=== PATIENT | female | born 1980 | race Caucasian/White ===

== ENCOUNTER → 2020-09-09 09:01 | Outpatient (CLI) | payer OTHER, SELFPAY ==
--- NOTE | 2020-09-09 09:05 | DI.RAD.S_ITS ---
PROCEDURE: XR HAND RT MIN 3V INDICATIONS: intermittent hand pain and swelling TECHNIQUE: 3 views of the hand(s) acquired. COMPARISON: None. FINDINGS: Bones: No evidence of acute fracture. No marginal lucencies to suggest erosions identified. There is chondrocalcinosis projecting of the radiocarpal compartment. Radiocarpal joint degeneration is also noted. 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 Soft tissue swelling primarily involving the index and middle fingers. IMPRESSION: Chondrocalcinosis in the radiocarpal compartment. Radiocarpal and distal radioulnar joint osteoarthritis No definite marginal lucencies to suggest erosions. Dictated by: Dwight Ibarra M.D. on 09/09/2020 at 11:31 Approved by: Dwight Ibarra M.D. on 09/09/2020 at 11:33
[2020-09-09 09:39] LABS: Hematocrit 38.1 % (36-46); Hemoglobin 13.1 g/dL (12.0-16.0); Mean Corpuscular HGB Conc 34.3 % (30-36); Mean Corpuscular Hemoglobin 33.1 PG (26-34); Mean Corpuscular Volume 96.5 fL (80-100); Platelet Count 197 X10^3/uL (150-400); Red Blood Cell Count 3.95 X10^6/uL (4.0-5.2); Red Cell Distribution Width 13.1 % (11.6-14.8)
[2020-09-09 09:56] LABS: Alanine Aminotransferase 12 IU/L (<35); Albumin Globulin Ratio 1.4 (1.0-2.8); Alkaline Phosphatase 56 U/L (38-126); Aspartate Aminotransferase 18 IU/L (14-36); Bilirubin Total 0.3 mg/dL (0.2-1.3); Blood Urea Nitrogen 13 mg/dL (7-17); C-Reactive Protein Quant 0.5 mg/dL (<1.0); Calcium 9.7 mg/dL (8.4-10.2); Carbon Dioxide 29 mmol/L (22-32); Chloride 104 mmol/L (98-107); Cholesterol 146 mg/dL (140-199); Estimated Glomerular Filt Rate > 60.0 mL/min (>60); Globulin 2.9 g/dL (1.7-4.1); Glucose 87 mg/dL (70-100); HDL Cholesterol 57 mg/dL (40-60); HEMOLYSIS < 15 (0-50); LDL Cholesterol Calculated 75 mg/dL (<100); Sodium 137 mmol/L (137-145); Total Protein 6.9 g/dL (6.3-8.2); Triglycerides 68 mg/dL (35-150)
[2020-09-09 09:57] LABS: Potassium 4.5 mmol/L (3.4-5.1)
[2020-09-09 10:01] LABS: Erythrocyte Sedimentation Rate 6 MM/HR (0-20)
[2020-09-11 17:27] LABS: ANA Screen, IFA Positive (.)
== END ==
PROVIDERS: PCP Nurse Practitioner Family; Referring Provider Nurse Practitioner Family; Visit Provider Nurse Practitioner Family
DX: M79.641 Pain in right hand (principal); L40.9 Psoriasis, unspecified; Z00.00 Encounter for general adult medical examination without abnormal findings; Z13.6 Encounter for screening for cardiovascular disorders
CPT/HCPCS: 36415; 73130; 80053; 80061; 85027; 85651; 86038; 86140

== ENCOUNTER → 2020-11-17 12:23 | Outpatient (CLI) | payer OTHER, SELFPAY ==
[2020-11-17 14:46] LABS: HEMOLYSIS < 15 (0-50); Iron 113 ug/dL (37-170)
[2020-11-17 14:59] LABS: Percent Iron Saturation 31 % (15-50); Total Iron Binding Capacity 363 ug/dL (265-497); Transferrin 270 mg/dL (206-381)
[2020-11-17 15:18] LABS: TSH w/ Reflex to FT4 1.35 uIU/mL (0.47-4.68)
[2020-11-17 15:28] LABS: Ferritin 12 ng/mL (6-137)
[2020-11-17 15:41] LABS: Vitamin B12 Reflex MMA if <400 357 pg/mL (239-931)
[2020-11-20 12:14] LABS: Methylmalonic Acid,Serum 198 nmol/L (0-378)
== END ==
PROVIDERS: PCP Nurse Practitioner Family; Referring Provider Nurse Practitioner Family; Visit Provider Nurse Practitioner Family
DX: R53.83 Other fatigue (principal)
CPT/HCPCS: 36415; 82607; 82728; 83540; 83550; 83921; 84443

== ENCOUNTER → 2021-06-30 14:47 | Outpatient (CLI) | payer OTHER, SELFPAY ==
[2021-07-02 17:29] LABS: ANA Screen, IFA Positive (.)
== END ==
PROVIDERS: Family Provider Family Medicine; PCP Family Medicine; Referring Provider Family Medicine; Visit Provider Family Medicine
DX: M25.449 Effusion, unspecified hand (principal)
CPT/HCPCS: 36415; 86038

== ENCOUNTER 2021-07-14 13:45 | Outpatient (RCR) | payer OTHER, SELFPAY ==
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
--- NOTE | 2021-07-04 17:56 | PT.OPPOC ---
Physical, Occupational & Speech Therapy At [facility] Current Diagnoses Other chronic pain (07/04/21) Pain in left shoulder (07/04/21) Pain in right knee (07/04/21) Pain in left knee (07/04/21) Low back pain, unspecified (07/04/21) Pain in right hand (07/04/21) Pain in right foot (07/04/21) Pain in left foot (07/04/21) Visit Care Team Role Provider Type Juvencio Huynh DO Attending Provider Physician Family Provider Primary Care Provider Referring Provider Specialty: Family Practice Address: [address] [place] [address], [facility] Email: Plan Of Care PT-OP-T Assessment and Plan Start: 07/04/21 16:12 Freq: Status: Active Protocol: Document 07/04/21 15:15 DCW (Rec: 07/04/21 17:54 DCW [id number]) Physical Therapy Assessment Rehab Potential Rehabilitation Potential Good Evaluation Complexity Number of Personal Factors/Comorbidities 1-2 Number of Body Systems Impaired 4 or More Clinical Presentation at Evaluation Stable Impairments Impairments Activity Tolerance,Functional Activities,Functional Mobility ,Gait,Soft Tissue Mobility, Strength Goals Three Impairment Pt cannot participate in normal hobbies due to feeling of knee instability Risk Officer Goal (LTG) Pt to demonstrate squatting and jogging with proper knee and hip alignment in order to show ability to perform more advanced activities with improved hip and knee control and stability. LTG Duration 09/03/21 Two Impairment Hip weakness results in hip instability during gait Alf Goal (LTG) Pt to increase hip abduction MMT to 4+/5 bilaterally to improve stability of pelvis and SI during gait. LTG Duration 09/03/21 One Impairment Pt does not have an appropriate home exercise program Short Term Goal (STG) Pt to be independent and compliant with an appropriate HEP STG Duration 08/04/21 Assessment Summary Assessment Pt knees and hips assessed today, will need ot perform further evaluation on shoulder at a later date due to time constraints. Pt's knee largely WNL, good patellar mobility, appropriate VMO contraction, goor strength and ROM. Pt does demonstrate poor squat mechanics, and additionally her natural walking has poor hip stability, knee valgus, toe out, and excessive stride length, although she is aware of these issues and has been trying to work on them, doing a good job when she is thinking about it. Pt additionally displays mild pelvic rotation, with an elevated right/depressed left ASIS, which gives the appearance of a slight LLD. Pt responded well to use of MWM to correct pelvic alignment. Pt will likely benefit from skilled therapy focusing on improving hip and knee alignment, hip strengthening, gait training, and instruction on body mechanics. Physical Therapy Plan Frequency and Duration Frequency of Treatment 1-2x/week Duration of Treatment Two months Plan of Care Start Date 07/04/21 Plan of Care End Date 09/03/21 Therapeutic Interventions Therapeutic Interventions Coordination Training,Home Exercise Program,Joint Mobilizations,Manual Therapy, Neuromuscular Re-education, Patient/Caregiver Education, Self-Care/Home Management, Therapeutic Activities, Therapeutic Exercises Next Visit Focus/Plan Next Note Type Treatment Note Next Visit Plan Shoulder assessment, hip strengthening/stability, body mechanics for jogging and squatting Plan of Care Dates Plan of Care Start Date 07/04/21 Plan of Care End Date 09/03/21 Electronically Signed by: Kaushik Ashford, PT 07/04/21 [id number] Please Sign and Return: I have reviewed this Plan of Care and certify that the skilled therapy services above are required to meet the patient?s needs. Physician Signature Date Printed Name and Credentials Clinical Instructor Signature Printed Name and Credentials
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
--- NOTE | 2021-07-14 14:32 | PT.OTN ---
Current Diagnoses Other chronic pain (07/14/21) Pain in left shoulder (07/14/21) Pain in right knee (07/14/21) Pain in left knee (07/14/21) Low back pain, unspecified (07/14/21) Pain in right hand (07/14/21) Pain in right foot (07/14/21) Pain in left foot (07/14/21) Physical Therapy Treatment Note PT-OP-A Visit Information Start: 07/04/21 16:12 Freq: Status: Active Protocol: Document 07/14/21 13:45 DCW (Rec: 07/14/21 14:32 DCW [id number]) Out-Patient Physical Therapy Visit Information Visit Information Visit Type Treatment Note Visit Start Time 12:00 Visit Stop Time 12:45 Total Visit Minutes 45 Visit Number 3 Number of COLLECTIVE BARGAINING SPECIALIST Visits 0 Evaluation Information Evaluation Date 07/04/21 PT-OP-B Current Condition Start: 07/04/21 16:12 Freq: Status: Active Protocol: Document 07/04/21 15:15 DCW (Rec: 07/04/21 16:27 DCW [id number]) Current Condition History of Current Condition Onset Date Long-standing history Current Complaints B knee pain, L shoulder pain, LBP History of Current Condition Pt is a 40 year old female presenting with a complicated history of multiple areas of pain. Pt notes that she is doing much better at the moment, but had been experiencing significant pain in multiple joints. 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 Additionally, pt has been dealing with anxiety problems, and has had blood work which suggested she may have potential for some autoimmune disorders. Notes she has started doing some yoga, cycling, hip strengthening, and dietary changes, as well as working with her PCP to correct her gait, which have all helped quite a bit. Notes she has not yet been able to return to her usual hobbies, like backpacking, snowboarding , and running, because she experiences knee pain and feels that her knees are unstable. Notes she had been having SI dysfunction, but it has greatly minimized recently after starting her hip program. Reports her shoulder is still occasionally bothersome, but today it is feeling quite good. Treatment Goals Patient/Caregiver Goals Return to prior hobbies without pain PT-OP-C Subjective Start: 07/04/21 16:12 Freq: Status: Active Protocol: Document 07/14/21 13:45 DCW (Rec: 07/14/21 14:32 DCW [id number]) OP-PT Subjective Patient Comments Patient Comments It's hard to say if it's better or not, because it hasn 't been bad, I'm trying to basically leave it alone. PT-OP-E Functional Tests Start: 07/04/21 16:12 Freq: Status: Active Protocol: Document 07/04/21 15:15 DCW (Rec: 07/04/21 16:39 DCW [id number]) Functional Tests Squat Test Comments Pt squats with mild vagus and knees past toes PT-OP-F Manual Assessment Start: 07/04/21 16:34 Freq: Status: Active Protocol: Document 07/11/21 12:00 DCW (Rec: 07/11/21 12:52 DCW [id number]) Manual Assessments Soft Tissue Assessment Soft Tissue Mobility Assessment Tenderness to palpation 2/4: pain with wincing along L LH biceps tendon. Joint Mobility Assessment Joint Mobility Assessment Pt presents with rotated pelvis, elevated right/ depressed left ASIS PT-OP-G Mobility & Gait Start: 07/04/21 16:12 Freq: Status: Active Protocol: Document 07/04/21 15:15 DCW (Rec: 07/04/21 16:39 DCW [id number]) OP Gait Assessment Comments Gait Comments Pt ambulated with good posture , appropriate stride length, toe out WNL, and good hip/ pelvis control. Pt then notes that she was trying really hard to walk correctly, and then demonstrated her usual gait. Her usual gait features bilateral toe out, knee valgus , excessive hip mobility, and excessive stride length. PT-OP-L Special Tests Start: 07/04/21 16:12 Freq: Status: Active Protocol: Document 07/11/21 12:00 DCW (Rec: 07/11/21 12:52 DCW [id number]) Special Tests Shoulder Special Tests Speed's Biceps Test Results Positive R Passive ER Rotator Cuff Test Results Negative Ro[address] Impingement Test Results Negative Grind Labrum Test Results Negative Empty Can Test Results Negative Clunk Test Test Results Negative Biceps Load II Test Test Results Positive R Belly Press Test Results Negative Apprehension Test Test Results Negative AC Joint Compression Test Results Negative PT-OP-M Strength Start: 07/04/21 16:12 Freq: Status: Active Protocol: Document 07/11/21 12:00 DCW (Rec: 07/11/21 12:52 DCW [id number]) Elbow/Forearm Strength Elbow and Forearm Manual Muscle Testing Left Flexion (C6) 4+ Good+ Extension (C7) 4+ Good+ PT-OP-Q Treatments Start: 07/04/21 16:12 Freq: Status: Active Protocol: Document 07/14/21 13:45 DCW (Rec: 07/14/21 14:32 DCW [id number]) Therapeutic Exercises Supine Exercises 2 Supine Exercise Name Piriformis stretch Side bilateral Sitting Exercises 1 Sitting Exercise Name [place]ya on the [place] Manual Therapy Treatment Soft Tissue Mobilization 2 Body Location R QL Mobilization Type Sustained Pressure,Trigger Point Release Intensity/Depth Moderate Body Position Sitting 1 Body Location R Psoas Mobilization Type Sustained Pressure,Trigger Point Release Intensity/Depth Moderate Body Position Hooklying Joint Mobilizations 1 Joint R Acetabular Direction Lateral Grade III Body Position Hooklying Comments Jt capsule stretch /c strap PT-OP-T Assessment and Plan Start: 07/04/21 16:12 Freq: Status: Active Protocol: Document 07/14/21 13:45 DCW (Rec: 07/14/21 14:32 DCW [id number]) Physical Therapy Assessment Impairments Impairments Activity Tolerance,Functional Activities,Functional Mobility ,Gait,Soft Tissue Mobility, Strength Goals Three Impairment Pt cannot participate in normal hobbies due to feeling of knee instability Gun Barrel Finisher Goal (LTG) Pt to demonstrate squatting and jogging with proper knee and hip alignment in order to show ability to perform more advanced activities with improved hip and knee control and stability. LTG Duration 09/03/21 Two Impairment Hip weakness results in hip instability during gait Gun Barrel Finisher Goal (LTG) Pt to increase hip abduction MMT to 4+/5 bilaterally to improve stability of pelvis and SI during gait. LTG Duration 09/03/21 One Impairment Pt does not have an appropriate home exercise program Short Term Goal (STG) Pt to be independent and compliant with an appropriate HEP STG Duration 08/04/21 Assessment Summary Assessment Pt continues to show mild tightness in hip musculature, tolerating treatment well. Overall, feeling better with her mobility and pain, would like to plan to keep next scheduled appointment, has she is leaving tomorrow for a week vacation, and she is worried that she will end up with increased tone/pain afterward. Physical Therapy Plan Frequency and Duration Frequency of Treatment 1-2x/week Duration of Treatment Two months Plan of Care Start Date 07/04/21 Plan of Care End Date 09/03/21 Therapeutic Interventions Therapeutic Interventions Coordination Training,Home Exercise Program,Joint Mobilizations,Manual Therapy, Neuromuscular Re-education, Patient/Caregiver Education, Self-Care/Home Management, Therapeutic Activities, Therapeutic Exercises Next Visit Focus/Plan Next Note Type Treatment Note Next Visit Plan Hip strengthening/stability, body mechanics for jogging and squatting
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
== END 2022-02-23 14:12 | disposition home or self-care (01) ==
LOC: PHYS 13:45
PROVIDERS: Family Provider Family Medicine; PCP Family Medicine; Referring Provider Family Medicine; Visit Provider Family Medicine
DX: M79.641 Pain in right hand (principal); M25.561 Pain in right knee; M25.562 Pain in left knee; G89.29 Other chronic pain; M79.671 Pain in right foot; M79.672 Pain in left foot; M54.50 Low back pain, unspecified; M25.512 Pain in left shoulder
CPT/HCPCS: 97110; 97140; 97161

== ENCOUNTER → 2021-09-07 11:55 | Outpatient (CLI) | payer OTHER, SELFPAY ==
--- NOTE | 2021-09-07 11:56 | DI.US.S_ITS ---
LIMITED ULTRASOUND OF LEFT BREAST: 09/07/2021 CLINICAL: Palpable left breast lump. Comparison is made to exam dated: 09/07/2021 mammogram - [facility]. Real-time ultrasound of the left breast 7 o'clock region was performed. Beasley scale images of the real-time examination were reviewed. No significant abnormalities were seen sonographically in the left breast at the palpable abnormality. IMPRESSION: NEGATIVE There is no sonographic evidence of malignancy. Exam findings were conveyed to the patient. Patient is advised to monitor for significant change. Clinical follow-up as needed. A 1 year screening mammogram is recommended. This exam was interpreted at Station ID: [id number]. Electronically Signed By: Tucker Alcantar M.D. slc/:09/07/2021 12:53:25 letter sent: Normal Exam Ultrasound BI-RADS: 1 Negative
--- NOTE | 2021-09-07 11:56 | DI.MG.S_ITS ---
BILATERAL DIGITAL DIAGNOSTIC MAMMOGRAM 3D/2D: 09/07/2021 CLINICAL: Baseline exam. Left breast lump. No prior exams were available for comparison. The tissue of both breasts is heterogeneously dense. This may lower the sensitivity of mammography. No significant masses, calcifications, or other findings are seen in either breast. IMPRESSION: INCOMPLETE: NEEDS ADDITIONAL IMAGING EVALUATION No mammographic evidence of malignancy. A targeted ultrasound for left breast palpable abnormality is recommended and will immediately follow. This exam was interpreted at Station ID: [id number]. NOTE: For mammograms, a report in lay terms will be sent to the patient. Approximately 15% of breast malignancies will not be visualized mammographically. In the management of a palpable breast mass, a negative mammogram must not discourage biopsy of a clinically suspicious lesion. Electronically Signed By: Tucker Alcantar M.D. slc/:09/07/2021 12:42:38 ACR BI-RADS Category 0: Incomplete 3340F
== END ==
PROVIDERS: Family Provider Family Medicine; PCP Family Medicine; Referring Provider Obstetrics & Gynecology; Visit Provider Obstetrics & Gynecology
DX: N63.20 Unspecified lump in the left breast, unspecified quadrant (principal); R92.2 Inconclusive mammogram
CPT/HCPCS: 76642; 77066; G0279

== ENCOUNTER → 2022-10-05 15:31 | Outpatient (CLI) | payer OTHER, SELFPAY ==
--- NOTE | 2022-10-05 | DI.MG.S_ITS ---
BILATERAL DIGITAL SCREENING MAMMOGRAM 3D/2D WITH CAD: 10/05/2022 CLINICAL: Routine screening. Family history of breast cancer. Comparison is made to exams dated: 09/07/2021 ultrasound and 09/07/2021 mammogram - [facility]. Both breasts are heterogeneously dense, which may obscure small masses (category c / 51-75% glandular tissue). Current study was also evaluated with a Computer Aided Detection (CAD) system. No significant masses, calcifications, or other findings are seen in either breast. There has been no significant interval change. IMPRESSION: NEGATIVE There is no mammographic evidence of malignancy. A 1 year screening mammogram is recommended. Based on Tyrer-Cuzick model (a risk assessment model), the patient's lifetime risk is 21.5% and her 10 year risk is 3.4%. If a patient has an elevated risk, a more comprehensive evaluation should be considered and/or a referral to a genetic counselor. The [place] [employer], [employer], and NCCN Guidelines advise the consideration of Breast MRI as an adjunct to screening mammography in patients whose Lifetime risk to develop breast cancer is 20% or higher. This exam was interpreted at Station ID: [id number]. NOTE: For mammograms, a report in lay terms will be sent to the patient. Approximately 15% of breast malignancies will not be visualized mammographically. In the management of a palpable breast mass, a negative mammogram must not discourage biopsy of a clinically suspicious lesion. Electronically Signed By: Stevo snyder/vidal:10/06/2022 17:23:04 letter sent: Normal Exam ACR BI-RADS Category 1: Negative 3341F
== END ==
PROVIDERS: Family Provider Family Medicine; PCP Family Medicine; Referring Provider Family Medicine; Visit Provider Family Medicine
DX: Z12.31 Encounter for screening mammogram for malignant neoplasm of breast (principal); Z80.3 Family history of malignant neoplasm of breast
CPT/HCPCS: 77063; 77067

== ENCOUNTER → 2023-06-25 16:55 | Outpatient (CLI) | payer OTHER, SELFPAY ==
--- NOTE | 2023-06-25 17:00 | DI.US.S_ITS ---
PROCEDURE: US OB <= 14 WEEKS FETUS INDICATIONS: dating and viability OUTSIDE/PRIOR DATING DATA: Last menstrual period (LMP): Unknown. LMP-based estimated date of delivery (YAZMIN): Not applicable. First dating scan (date and location): 06/25/2023. Estimated date of delivery (YAZMIN) from first dating scan: 02/15/2024. The calculations are made using the ultrasound YAZMIN of 02/15/2024. TECHNIQUE: Real-time scanning was performed of the fetus and maternal pelvic organs, with image documentation. Endovaginal scanning was also performed to better visualize the fetus and maternal ovaries. COMPARISON: None. FINDINGS: Single living intrauterine present. Embryo: Present, measuring 6 millimeters, 6 weeks 3 days. Heart rate: Present, 131 beats per minute. Maternal organs: Ovaries demonstrate a left-sided corpus luteum. IMPRESSION: Single living intrauterine at 6 weeks 3 days, YAZMIN 02/15/2024. We strive to produce accurate, complete, and clear reports of imaging services. To assist us in improving patient care, this report was composed using standard report templates and voice recognition software. Therefore, it may contain abnormal punctuation, insertions and/or omissions. Occasional wrong-word or sound-alike substitutions may occur. Though we review the report and make efforts to correct it, we do recommend that the report be read carefully in proper context to recognize any text inaccuracies. Dictated by: Marcial Henning M.D. on 06/26/2023 at 9:04 Approved by: Marcial Henning M.D. on 06/26/2023 at 9:05
== END ==
LOC: US 16:56
PROVIDERS: Family Provider Family Medicine; PCP Family Medicine; Referring Provider Student in an Organized Health Care Education/Training Program; Visit Provider Family Medicine
DX: Z34.01 Encounter for supervision of normal first pregnancy, first trimester (principal); Z3A.01 Less than 8 weeks gestation of pregnancy
CPT/HCPCS: 76801; 76817

== ENCOUNTER → 2023-06-29 10:14 | Outpatient (CLI) | payer OTHER, SELFPAY ==
[2023-06-29 14:40] LABS: Urine N gonorrhoeae NOT DETECTED
[2023-06-29 14:43] LABS: Urine Chlamydia NOT DETECTED
== END ==
PROVIDERS: Family Provider Family Medicine; PCP Family Medicine; Visit Provider Student in an Organized Health Care Education/Training Program
DX: Z34.01 Encounter for supervision of normal first pregnancy, first trimester (principal); Z3A.01 Less than 8 weeks gestation of pregnancy
CPT/HCPCS: 87491; 87591

== ENCOUNTER 2023-07-11 16:22 | Day surgery (SDC) | payer OTHER, SELFPAY ==
--- NOTE | 2023-07-11 | PATH_ITS ---
[facility] Accession Number: [id number] No. of containers..01 Tissue . 01 Material submitted: . product of conception - PRODUCTS OF CONCEPTION . 01 Diagnosis: UTERINE CONTENTS: Immature chorionic villi with hydropic degeneration, tissue, and inflamed decidual tissues (products of conception). Negative for gestational trophoblastic disease. MRV 07/17/2023 1624 Local . 01 Electronically signed: . Mica Frederick MD, Pathologist NPI- [id number] . 01 Gross description: . Received in formalin with two identifiers and products of conception, are multiple young, spongy to membranous, soft tissue fragments admixed with mucohemorrhagic material aggregating to 5.7 x 3.3 x 2.3 cm. Possible tissue is identified. Housekeeper Home sections are submitted in cassettes A1-A2. ([id number]) /MRV 07/12/2023 1312 Local . 01 Pathologist provided ICD-10: O03.9 . 01 CPT . 368390 Specimen Comment: A courtesy copy of this report has been sent to [phone] Performed at: 01 [facility] [address] [place] [address], [place], [place] [id number] MD Frank Maxwell MD Phone: [phone]
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
[2023-07-11] MEDS: LACTATED RINGERS 1,000 ML 42 ML IV (16:37)
[2023-07-11 16:48] VITALS: BP 112/70; PULSE 82; RESP 16; TEMP 37.4; O2SAT 98
--- NOTE | 2023-07-11 16:52 | SUR.OPER ---
Lithotomy on padded OR bed, head on pillow, arms secured on padded arm boards at <90 degrees abduction. Legs secured in padded yellow fins stirrups.
[2023-07-11 16:55] VITALS: BMI 21.1
[2023-07-11 18:41] VITALS: BP 82/46; PULSE 87; RESP 14; TEMP 36.8; O2SAT 97
--- NOTE | 2023-07-11 18:47 | PM.GYNOP.1 ---
Operative Date/Time/Diagnoses Date of procedure: 07/11/23 Time of procedure: 18:10 Pre-op diagnosis: Inevitable Post-op diagnosis: same Procedure & Clinicians Procedure: Procedures Operation Date: 07/11/23 16:30 Actual Procedure Side Surgeon p Dilation and Curettage Timoteo Cheema MD Indications: Erika Neri is a 42 year old , YAZMIN 02/15/2024 who opted for who opted for medical termination and received mifepristone yesterday followed by misoprostol today but her cramps are so severe she instead requests suction curettage of what has been shown by US to now be a non-viable . In addition to the severe cramping, she's also having light bleeding with passage of small clots. BT is B positive. Surgeon: Timoteo Cheema Anesthesia Type: General Operative Notes Findings: Abundant products of conception within the endometrial cavity, removed entirely during the course of surgery. Pre-evacuation the uterus was 8-10 wks size and post-evacuation 8 weeks in size Closure Type: not applicable Specimen(s): products of conception Estimated blood loss (mL): 25 Blood products transfused: none Procedure in detail: With the patient under satisfactory general endotracheal anesthesia in the modified dorsal lithotomy position, the pelvis, perineum, and lower abdomen were prepped and draped in the usual fashion for D&C. A pre-surgical safety time-out was then taken in accordance with [facility] OR protocols. A bivalve speculum was inserted in the vagina and the cervix visualized. The anterior lip of the cervix was grasped with a long allis clamp and the endocervical canal was sequentially dilated to 8 mm with Nichole dilators. An 8 mm curved suction curette was then introduced into the endometrial cavity and suction applied. Several passes with the suction curette were required for complete evacuation of the uterus and prior to initiating the curettage itself, the patient received 10 units of Pitocin IM along with Methergine 0.2 mg IM. Once complete evacuation of the uterine cavity was assured, the allis clamp was removed from the anterior lip of the cervix and the puncture site on the left required placement of a Allis clamp for 90 seconds to render the site completely hemostatic. At that point the speculum was removed from the vagina and the procedure terminated. The patient was then awakened from anesthesia and transferred to the PACU for a period of observation and recovery having tolerated the procedure well. Complications: none Post-operative Condition: stable Disposition: PACU Plan for aftercare: Routine post-op care and follow-up in 2 weeks or as needed.
[2023-07-11 18:48] VITALS: BP 88/57; PULSE 95; RESP 21; TEMP 36.8; O2SAT 97
[2023-07-11 18:54] VITALS: BP 86/59; PULSE 83; RESP 13; TEMP 36.7; O2SAT 100
[2023-07-11 18:59] VITALS: BP 98/61; PULSE 77; RESP 12; TEMP 36.7; O2SAT 100
[2023-07-11 19:11] VITALS: BP 100/65; PULSE 79; RESP 14; TEMP 36.6; O2SAT 98
== END 2023-07-11 19:25 | disposition home or self-care (01) ==
PROVIDERS: Family Provider Family Medicine; PCP Family Medicine; Referring Provider Obstetrics & Gynecology; Visit Provider Obstetrics & Gynecology
PROC: (CPT 58120; principal; 2023-07-11 16:30)
DX: O03.9 Complete or unspecified spontaneous abortion without complication (principal)
CPT/HCPCS: 59840; 36415; 86900; 86901; J2250; J2590; J2704; J3010

== ENCOUNTER → 2024-01-10 15:21 | Outpatient (CLI) | payer BC, SELFPAY ==
--- NOTE | 2024-01-10 15:23 | DI.MG.S_ITS ---
BILATERAL DIGITAL SCREENING MAMMOGRAM 3D/2D WITH CAD: 01/10/2024 CLINICAL: Routine screening. Family history of breast cancer. Comparison is made to exams dated: 10/05/2022 mammogram and 09/07/2021 mammogram - [facility]. The breasts are heterogeneously dense, which may obscure small masses (category c / 51-75% glandular tissue). Current study was also evaluated with a Computer Aided Detection (CAD) system. No significant masses, calcifications, or other findings are seen in either breast. There has been no significant interval change. IMPRESSION: NEGATIVE There is no mammographic evidence of malignancy. A 1 year screening mammogram is recommended. Based on Tyrer-Cuzick model (a risk assessment model), the patient's lifetime risk is 21.5% and her 10 year risk is 3.9%. If a patient has an elevated risk, a more comprehensive evaluation should be considered and/or a referral to a genetic counselor. The [place] [employer], [employer], and NCCN Guidelines advise the consideration of Breast MRI as an adjunct to screening mammography in patients whose Lifetime risk to develop breast cancer is 20% or higher. This exam was interpreted at Station ID: [id number]. NOTE: For mammograms, a report in lay terms will be sent to the patient. Approximately 15% of breast malignancies will not be visualized mammographically. In the management of a palpable breast mass, a negative mammogram must not discourage biopsy of a clinically suspicious lesion. Electronically Signed By: Simon alonzo/vidal:01/11/2024 12:14:34 letter sent: Normal Exam ACR BI-RADS Category 1: Negative
== END ==
PROVIDERS: Family Provider Family Medicine; PCP Family Medicine; Referring Provider Family Medicine; Visit Provider Family Medicine
DX: Z12.31 Encounter for screening mammogram for malignant neoplasm of breast (principal); Z80.3 Family history of malignant neoplasm of breast; R92.333 Mammographic heterogeneous density, bilateral breasts
CPT/HCPCS: 77063; 77067